=== PATIENT | female | born 1940 | race Caucasian/White ===

== ENCOUNTER 2018-11-29 18:18 | Inpatient (IN) | payer OTHER, MEDICARE ==
[2018-11-29 18:54] VITALS: BMI 24.0
--- NOTE | 2018-11-29 19:50 | PDOC ---
*Physical Exam - Vital Signs Last Vital Signs Temp Pulse Resp BP Pulse Ox 97.6 F 75 20 125/76 95 11/29/18 18:48 11/29/18 18:48 11/29/18 18:48 11/29/18 18:48 11/29/18 18:48 ED Treatment Course - LABORATORY CBC & Chemistry Diagram: 11/29/18 23:00 11/29/18 23:00 Medical Decision Making - Medical Decision Making 11/29/18 19:50 Patient seen by the advanced practice provider under my direct supervision. Ancillary testing reviewed as necessary. I agree with plan as outlined by the advanced practice provider. *DC/Admit/Observation/Transfer Diagnosis at time of Disposition: Fall - Referrals Referrals: Elva Salomon MD [Primary Care Provider] - - Patient Instructions - Post Discharge Activity
--- NOTE | 2018-11-29 20:09 | PDOC ---
History of Present Illness <Lazaro Walton - Last Filed: 11/29/18 23:47> - General History Source: Patient Exam Limitations: No Limitations - History of Present Illness Initial Comments: 11/29/18 20:05 HISTORY OF PRESENT ILLNESS: This 78-year-old woman with past medical history of left humerus fracture 09/19, pneumonia, PE on Eliquis with IVC filter, bleeding gastric ulcer presents emergency department for evaluation of head trauma status post fall. Patient resides in an assisted living facility and on her way to dinner she stopped in her kitchen at to put something down when she tried to stand up from a bending position fell backwards striking her head on the floor. She denies any loss of consciousness and is full recollection of events immediately prior to, during and after the event. Patient required assistance to get off the floor she still has the left humeral fracture. Patient also complains of urinary frequency and dysuria. No recent travel or sick contacts. PAST MEDICAL HISTORY: see HPI SURGICAL HISTORY: Denies ALLERGIES: azithromycin, lactose, gluten, latex, Talwin REVIEW OF SYSTEMS General/Constitutional: Denies fever or chills. Denies weakness, weight change. HEENT: Denies change in vision. Denies ear pain or discharge. Denies sore throat. Cardiovascular: Denies chest pain or shortness of breath. Respiratory: Denies cough, wheezing, or hemoptysis. Gastrointestinal: Denies nausea, vomiting, diarrhea or constipation. Denies rectal bleeding. Genitourinary: see HPI Musculoskeletal: Denies joint or muscle swelling or pain. Denies neck or back pain. Skin and breasts: Denies rash or easy bruising. Neurologic: see HPI Psychiatric: Denies depression or anxiety. Endocrine: Denies increased thirst. Denies abnormal weight change. Hematologic/Lymphatic: Denies anemia, easy bleeding, or history of blood clots. Allergic/Immunologic: Denies hives or skin allergy. Denies latex allergy. PHYSICAL EXAM General Appearance: Well-appearing, appropriately dressed. No apparent distress , no intoxication. HEENT: EOMI, PERRLA, normal voice, TMs normal, pharynx normal. No conjunctival pallor. No photophobia, scleral icterus. Left eye cataract present. MM dry. Neck: Supple. Trachea midline. No tenderness, rigidity, carotid bruit, stridor , lymphadenopathy, or thyromegaly. Respiratory/Chest: Lungs CTAB. No shortness of breath, chest tenderness, respiratory distress, accessory muscle use. No crackles, rales, rhonchi, stridor , wheezing, dullness Cardiovascular: RRR. S1, S2. No JVD, murmur, bradycardia, tachycardia. Vascular Pulses: Dorsalis-Pedis (R): 2+, Dorsalis-Pedis (L): 2+ Gastrointestinal/Abdominal: Normal bowel sounds. Abdomen soft, non-distended. No tenderness or rebound tenderness. No organomegaly, pulsatile mass, guarding, hernia, hepatomegaly, splenomegaly. Lymphatic: No adenopathy, tenderness. Musculoskeletal/Extremities: Normal inspection. FROM of all extremities, normal capillary refill. Pelvis Stable. No CVA tenderness. No tenderness to extremities, pedal edema, swelling, erythema or deformity. No bony tenderness to cervical, thoracic or lumbar spine. Integumentary: Appropriate color, dry, warm. No cyanosis, erythema, jaundice or rash Neurologic: brick or block maker II-XII intact. Fully oriented, alert. Appropriate mood/affect. Motor strength 5/5. No appreciable EOM palsy, facial droop or sensory deficit. <Jameel Lee - Last Filed: 11/30/18 20:04> - General Chief Complaint: Injury Stated Complaint: FALL Time Seen by Provider: 11/29/18 19:48 Past History <Lazaro Walton - Last Filed: 11/29/18 23:47> - Past Medical History Anemia: No Asthma: No Cancer: Yes (lt breast) Cardiac Disorders: Yes CVA: No COPD: No CHF: No Dementia: No Diabetes: No GI Disorders: No Disorders: No HTN: No Hypercholesterolemia: No Liver Disease: No Psychiatric Problems: Yes (Anxiety) Seizures: No Thyroid Disease: No - Surgical History Abdominal Surgery: Yes (bleeding ulcers) Appendectomy: Yes Cardiac Surgery: No Cholecystectomy: No Lung Surgery: No Neurologic Surgery: No Orthopedic Surgery: No - Suicide/Smoking/Psychosocial Hx Smoking Status: No Smoking History: Former smoker Have you smoked in the past 12 months: No Number of Cigarettes Smoked Daily: 20 If you are a former smoker, when did you quit?: 6mos ago Information on smoking cessation initiated: No 'Breaking Loose' booklet given: 06/20/12 Hx Alcohol Use: No Drug/Substance Use Hx: No Substance Use Type: Prescribed Hx Substance Use Treatment: No <Jameel Lee - Last Filed: 11/30/18 20:04> - Past Medical History Allergies/Adverse Reactions: Allergies Allergy/AdvReac Type Severity Reaction Status Date / Time azithromycin Allergy Verified 11/29/18 20:13 gluten [Gluten] Allergy Verified 11/29/18 20:13 lactose [Lactose] Allergy diarrhea Verified 11/29/18 20:13 latex Allergy Verified 11/29/18 20:13 pentazocine lactate Allergy abnormal Verified 11/29/18 20:13 [From Zoë] behavior Home Medications: Ambulatory Orders Acetaminophen [Tylenol] 325 mg PO Q6H PRN 11/29/18 Apixaban [Eliquis] 5 mg PO BID 11/29/18 Clonazepam 0.5 mg PO TID 11/29/18 Docusate Sodium [Colace] 100 mg PO DAILY 11/29/18 Metoprolol Succinate [Toprol Xl] 25 mg PO BID 11/29/18 Mirtazapine [Remeron -] 30 mg PO HS 11/29/18 Multivitamin [Multiple Vitamins] 1 each PO DAILY 11/29/18 Oxycodone HCl/Acetaminophen [Percocet 5-325 mg Tablet] 1 tab PO DAILY PRN Pantoprazole Sodium [Protonix] 40 mg PO DAILY 11/29/18 Potassium Chloride 20 meq PO DAILY 11/29/18 Sucralfate [Carafate -] 1 gm PO BID 11/29/18 Tramadol HCl [Ultram] 50 mg PO BID 11/29/18 Trauma Specific PMHX - Complaint Specific PMHX Arthritis: No <Jameel Lee - Last Filed: 11/30/18 20:04> *Physical Exam - Vital Signs Last Vital Signs Temp Pulse Resp BP Pulse Ox 97.6 F 75 20 125/76 95 11/29/18 18:48 11/29/18 18:48 11/29/18 18:48 11/29/18 18:48 11/29/18 18:48 <Lazaro Walton - Last Filed: 11/29/18 23:47> - Vital Signs Last Vital Signs Temp Pulse Resp BP Pulse Ox 97.6 F 75 20 125/76 95 11/29/18 18:48 11/29/18 18:48 02/27/19 18:48 11/29/18 18:48 11/29/18 18:48 <Jameel Lee - Last Filed: 11/30/18 20:04> Moderate Sedation - Procedure Monitoring Vital Signs: Procedure Monitoring Vital Signs Temperature 97.6 F 11/29/18 18:48 Pulse Rate 75 11/29/18 18:48 Respiratory Rate 20 11/29/18 18:48 Blood Pressure 125/76 11/29/18 18:48 O2 Sat by Pulse Oximetry (%) 95 11/29/18 18:48 <Lazaro Walton - Last Filed: 11/29/18 23:47> - Procedure Monitoring Vital Signs: Procedure Monitoring Vital Signs Temperature 97.6 F 11/29/18 18:48 Pulse Rate 75 11/29/18 18:48 Respiratory Rate 20 11/29/18 18:48 Blood Pressure 125/76 11/29/18 18:48 O2 Sat by Pulse Oximetry (%) 95 11/29/18 18:48 <Jameel Lee - Last Filed: 11/30/18 20:04> ED Treatment Course - LABORATORY CBC & Chemistry Diagram: 11/29/18 23:00 11/29/18 23:00 - ADDITIONAL ORDERS Additional order review: Laboratory Results 11/29/18 11/29/18 23:10 23:00 PT with INR 16.00 H INR 1.35 H Urine Color Ltyellow Urine Appearance Clear Urine pH 5.0 D Ur Specific [place] 1.010 Urine Protein Negative Urine Glucose (UA) Negative Urine Ketones Negative Urine Blood Negative Urine Nitrite Negative Urine Bilirubin Negative Urine Urobilinogen Negative Ur Leukocyte Esterase 1+ H Urine WBC (Auto) 9 Urine RBC (Auto) 1 Ur Epithelial Cells Rare Urine Mucus Rare 11/29/18 23:00 RBC 4.40 MCV 89.9 MCHC 33.3 RDW 14.9 D MPV 7.9 Neutrophils % 53.9 D Lymphocytes % 32.9 D Monocytes % 9.9 Eosinophils % 2.4 D Basophils % 0.9 D <Lazaro Walton - Last Filed: 11/29/18 23:47> - LABORATORY CBC & Chemistry Diagram: 11/29/18 23:00 11/29/18 23:00 <Jameel Lee - Last Filed: 11/30/18 20:04> Medical Decision Making - Medical Decision Making 11/29/18 23:45 Call placed to pt's PCP Dr. Salomon's answering service, case was discussed. <Lazaro Walton - Last Filed: 11/29/18 23:47> - Medical Decision Making 11/29/18 20:11 A/P: 78-year-old woman with head trauma status post fall Differential diagnosis includes but not limited to intracranial hemorrhage, spinal fracture, basilar skull fracture-unlikely, ACS, NED, infection, electrolyte abnormality CBC, CMP, coagulation profile, cardiac profile, CT of the head, CT of the C- spine, chest x-ray, urinalysis, urine culture 11/29/18 23:[address] as read by Dr. Hess: No CT evidence of intracranial injury calvarial fracture. There is no extra axial fluid collection. No discrete infarct is identified with the limitations of CT. In comparison to a prior CT exam of 06/19/12 interval development of mild periventricular white matter chronic muscular vascular ischemic changes is noted. Mildly increased involutional changes are seen with corresponding mild ventricular dilation. No obvious mass lesion is noted on noncontrast imaging. Impression: No CT evidence of acute age cranial pathology. CT of the C-spine as read by Dr. Hess: No fractures identified. EKG is reviewed by me and interpreted by Dr. mendieta-sinus rhythm with rate of 64. Normal intervals present. No ischemic changes noted. I will contact the PMD for observation for repeat CT scan in 12 hours UA with 1+ leuk esterase and 9 wbc's. I'll treat patient for urinary tract infection with ceftriaxone 1 g IV now 11/29/18 23:41 11/29/18 23:57 Case discussed with the patient's primary doctor Dr. Salomon who accepts patient for observation. She requested the patient not be treated for urinary tract infection until micro-returns. I will DC the ceftriaxone and patient is to be admitted. 11/30/18 20:04 <Jameel Lee - Last Filed: 11/30/18 20:04> *DC/Admit/Observation/Transfer - Attestations Scribe Attestion: 11/29/18 23:46 Documentation prepared by Lazaro Walton, acting as director medical for [employer] Jameel Lee. <Lazaro Walton - Last Filed: 11/29/18 23:47> - Discharge Dispostion Decision to Admit order: Yes <Jameel Lee - Last Filed: 11/30/18 20:04> Diagnosis at time of Disposition: Fall Qualifiers: Encounter type: initial encounter Qualified Code(s): W19.XXXA - Unspecified fall, initial encounter UTI (urinary tract infection) Qualifiers: Urinary tract infection type: acute cystitis Hematuria presence: without hematuria Qualified Code(s): N30.00 - Acute cystitis without hematuria - Discharge Dispostion Condition at time of disposition: Fair
[2018-11-29 23:13] LABS: BASO % 0.9 % (0-2.0); EOS % 2.4 % (0-4.5); HEMATOCRIT 39.6 % (32.4-45.2); HEMOGLOBIN 13.2 GM/dL (10.7-15.3); LYMPH % 32.9 % (8-40); MCH 29.9 pg (25.7-33.7); MCHC 33.3 g/dl (32.0-36.0); MEAN CELL VOLUME 89.9 fl (80-96); MEAN PLT VOLUME 7.9 fl (7.5-11.1); MONO % 9.9 % (3.8-10.2); NEUT % 53.9 % (42.8-82.8); PLATELET COUNT 320 K/MM3 (134-434); RDW 14.9 % (11.6-15.6); WHITE BLOOD COUNT 6.3 K/mm3 (4.0-10.0)
[2018-11-29 23:23] LABS: INR 1.35 (0.83-1.09)
[2018-11-29 23:28] LABS: URINE APPEARANCE CLEAR; URINE BILIRUBIN NEGATIVE (<2.0 mg/dL); URINE COLOR LTYELLOW; URINE GLUCOSE (UA) NEGATIVE (NEGATIVE); URINE KETONE NEGATIVE (NEGATIVE); URINE LEUK ESTERASE 1+ (NEGATIVE); URINE NITRITE NEGATIVE (NEGATIVE); URINE PROTEIN NEGATIVE (NEGATIVE); URINE UROBILINOGEN NEGATIVE mg/dL (0.2-1.0)
[2018-11-29 23:32] LABS: EPI CELLS RARE /HPF (FEW); URINE MUCUS RARE
[2018-11-29] MEDS ORDERED: CEFTRIAXONE 1,000 MG in DEXTROSE 5%-WATER - 50 ML IVPB ONE (23:39)
[2018-11-29 23:56] LABS: COCAINE, UR NEGATIVE ng/ml (CUTOFF=300); METHADONE, UR NEGATIVE ng/ml (CUTOFF=300); OPIATES, URI NEGATIVE ng/ml (CUTOFF=300); PHENCYCLIDINE,URINE NEGATIVE ng/ml (CUTOFF=25); URINE AMPHETAMINES NEGATIVE ng/ml (CUTOFF=500); URINE BARBITURATES NEGATIVE ng/ml (CUTOFF=200); URINE BENZODIAZEPINES NEGATIVE ng/ml (CUTOFF=200)
[2018-11-29] MEDS ORDERED: CEFTRIAXONE 1 GM/50 ML BAG ONE (23:59)
[2018-11-30 00:07] LABS: ALBUMIN 3.3 g/dl (3.4-5.0); ALK PHOS 70 U/L (45-117); ANION GAP 3 MMOL/L (8-16); BILIRUBIN,TOTAL 0.2 mg/dL (0.2-1); BLOOD UREA NITROGEN 6 mg/dL (7-18); CALCIUM 8.6 mg/dL (8.5-10.1); CHLORIDE 108 mmol/L (98-107); CO2 29 mmol/L (21-32); CREATININE 0.7 mg/dL (0.55-1.3); GLUCOSE,RANDOM 89 mg/dL (74-106); POTASSIUM 4.6 mmol/L (3.5-5.1); SGOT/AST 16 U/L (15-37); SGPT/ALT 16 U/L (13-61); SODIUM 140 mmol/L (136-145); TOT PROT 6.2 g/dl (6.4-8.2)
[2018-11-30] MEDS ORDERED: clonazePAM 0.5 MG TABLET PO ONE (01:47)
[2018-11-30] MEDS ORDERED: clonazePAM 0.5 MG TABLET ONE (02:15)
[2018-11-30] MEDS: clonazePAM 0.5 MG TABLET PO PRN ×3 (08:37→20:52)
[2018-11-30] MEDS: DOCUSATE SODIUM 100 MG CAPSULE (FP) PO SCH (09:20)
[2018-11-30] MEDS: APIXABAN 5 MG TABLET PO SCH ×3 (13:45→23:07)
[2018-11-30] MEDS: oxyCODONE HCL 5 MG TABLET PO PRN ×2 (13:45→20:53)
[2018-11-30] MEDS: ACETAMINOPHEN 325 MG TABLET (FP) PO PRN (13:47)
--- NOTE | 2018-11-30 16:56 | EKG ---
Test Reason : Blood Pressure : / mmHG Vent. Rate : 064 BPM Atrial Rate : 064 BPM P-R Int : 146 ms QRS Dur : 080 ms QT Int : 410 ms P-R-T Axes : 065 044 059 degrees QTc Int : 422 ms NORMAL SINUS RHYTHM LOW VOLTAGE QRS CANNOT RULE OUT ANTERIOR INFARCT (CITED ON OR BEFORE 21-JUN-2012) ABNORMAL ECG WHEN COMPARED WITH ECG OF 29-JUN-2012 17:35, NO SIGNIFICANT CHANGE WAS FOUND Confirmed by MAURICE HUYNH MD ([id number]) on 11/30/2018 4:56:00 PM Referred By: Confirmed By:MAURICE HUYNH MD
[2018-11-30] MEDS ORDERED: oxyCODONE HCL 5 MG TABLET PO PRN (22:20)
--- NOTE | 2018-11-30 22:28 | HP ---
Admitting History and Physical - Admission Chief Complaint: Fall at Assisted living facility and head trauma History of Present Illness: 78 yo female with PMH of recent fracture of the left humerus s/p discharge from [facility] and admitted to [facility]. Yesterday while she was straightening her body, after bending forward,the patient lost her balance. She fell backwards and hit her head. The patient did not lose her consciousness. Her PMH is complex including,multiple PE's and falls followed by fractures. Although she has an IVC filter she is on Eliquis 5 mg bid. It is not clear when she had her last episode of pulmonary embolism, or DVT and she is not able to recall. She has h/o left breasts cancer, s/p partial mastectomy. 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) - Past Surgical History Additional Past Surgical History: right hip replacement ivc filter - Smoking History Smoking history: Former smoker Have you smoked in the past 12 months: No Aproximately how many cigarettes per day: 20 If you are a former smoker, when did you quit?: 6mos ago - Alcohol/Substance Use Hx Alcohol Use: No - Social History Usual Living Arrangement: Yes: Alone, Assisted Living History of Recent Travel: No Home Medications - Allergies Allergies/Adverse Reactions: Allergies Allergy/AdvReac Type Severity Reaction Status Date / Time azithromycin Allergy Verified 11/29/18 20:13 latex Allergy Verified 11/29/18 20:13 pentazocine lactate Allergy abnormal Verified 11/29/18 20:13 [From Zoë] behavior - Home Medications Home Medications: Ambulatory Orders Apixaban [Eliquis] 5 mg PO BID 11/29/18 Clonazepam 0.5 mg PO TID 11/29/18 Docusate Sodium [Colace] 100 mg PO DAILY 11/29/18 Mirtazapine [Remeron -] 30 mg PO HS 11/29/18 Multivitamin [Multiple Vitamins] 1 each PO DAILY 11/29/18 Pantoprazole Sodium [Protonix] 40 mg PO DAILY 11/29/18 Acetaminophen [Tylenol .Regular Strength -] 650 mg PO Q6H PRN tablet 12/04/18 Apixaban [Eliquis -] 5 mg PO BID tablet 12/04/18 Docusate Sodium [Colace -] 100 mg PO DAILY capsule 12/04/18 Lidocaine 5% Patch [Lidoderm -] 2 patch TP DAILY patch 12/04/18 Lidocaine Patch Removal [Lidoderm Patch Removal] 2 each MC DAILY@2200 each 01/19 Mirtazapine [Remeron -] 30 mg PO HS tablet 12/04/18 Pantoprazole Sodium [Protonix -] 40 mg PO DAILY tablet.ec 12/04/18 clonazePAM [Klonopin -] 0.5 mg PO TID PRN #30 tablet MDD 3 12/04/18 Review of Systems - Review of Systems Constitutional: reports: Weakness Eyes: reports: Other (decreased vision in th left eye) HENT: reports: No Symptoms Neck: reports: No Symptoms Cardiovascular: reports: Shortness of Breath (with ambulation for short distances) Respiratory: reports: Exercise Intolerance. denies: Orthopnea Gastrointestinal: reports: Bloating, Constipation Genitourinary: reports: Burning Psychiatric: reports: Anxiety, Depression, Panic Physical Examination Vital Signs: Vital Signs Temperature 97.7 F 11/30/18 20:57 Pulse Rate 79 11/30/18 20:57 Respiratory Rate 18 11/30/18 20:57 Blood Pressure 100/70 11/30/18 20:57 O2 Sat by Pulse Oximetry (%) 96 11/30/18 09:00 Constitutional: Yes: No Distress, Calm. No: Severe Distress Eyes: Yes: Conjunctiva Clear, EOM Intact HENT: Yes: Atraumatic, Normocephalic Neck: Yes: Decreased ROM Cardiovascular: Yes: Regular Rate and Rhythm, S1, S2 Respiratory: Yes: Regular, CTA Bilaterally Gastrointestinal: Yes: Normal Bowel Sounds, Soft, Abdomen, Obese. No: Ascites ...Rectal Exam: Yes: Deferred Breast(s): Yes: WNL Musculoskeletal: Yes: Joint Stiffness (in the left shoulder,), Muscle Weakness ( in the lower extremities) Extremities: No: Calf Tenderness Edema: Yes Edema: RLE: 2+ Peripheral Pulses WNL: Yes Neurological: Yes: Alert, Oriented Psychiatric: Yes: Alert, Oriented, Other (anxious) Labs: CBC, BMP 11/29/18 23:00 11/29/18 23:00 Imaging - Results Chest X-ray: Other (no pleural effusions, no infiltrates) Problem List - Problems (1) Head trauma Assessment/Plan: negative CT scan of the brain no neurological changes continue Eliquis for now reasses the need for anticoagulation, consulting our Oncology service Code(s): S09.90XA - UNSPECIFIED INJURY OF HEAD, INITIAL ENCOUNTER (2) Fall Assessment/Plan: pain in the C spine and T spine area, add Lidoderm patch for pain management during the day Code(s): W19.XXXA - UNSPECIFIED FALL, INITIAL ENCOUNTER Qualifiers: Encounter type: initial encounter Qualified Code(s): W19.XXXA - Unspecified fall, initial encounter (3) Gait disturbance Assessment/Plan: continue PT, the patient is weak and needs additional intensive OT and PT , she has limited use of her left upper extremity and this makes her more prone to falls, used to use a bed side rail at home in order to get in and out of her bed she is not a candidate to discharge to [facility] at this time Code(s): R26.9 - UNSPECIFIED ABNORMALITIES OF GAIT AND MOBILITY (4) Fracture of humerus, left, closed Assessment/Plan: needs intensive OT, poor usage and limited usage of the left upper extremity is present Code(s): S42.302A - UNSP FRACTURE OF SHAFT OF HUMERUS, LEFT ARM, INIT (5) Healed or old pulmonary embolism Assessment/Plan: medical records to be obtained from [facility] called Dr. Alvarenga' office, the doctor was not in and will be back after the weekend Code(s): Z86.711 - PERSONAL HISTORY OF PULMONARY EMBOLISM Assessment/Plan 78 yo female s/p fall and head trauma on anticoagulation, with PMH of multiple falls the most recent complicated by her left humerus fracture. The patient needs help with getting in and out of the bed, needs the help of a person with long distance ambulation can not ambulate for long distances without being dyspneic and has unsteady gait.She is a candidate for physical therapy and I recommend discharge to SNF
[2018-11-30] MEDS: traMADol HCL 50 MG TABLET PO PRN (23:07)
[2018-11-30] MEDS: MIRTAZAPINE 15 MG TABLET (FP) PO SCH (23:07)
[2018-12-01] MEDS: DOCUSATE SODIUM 100 MG CAPSULE (FP) PO SCH (09:32)
[2018-12-01] MEDS: clonazePAM 0.5 MG TABLET PO PRN ×2 (09:32→16:11)
[2018-12-01] MEDS: APIXABAN 5 MG TABLET PO SCH ×2 (09:32→21:35)
[2018-12-01] MEDS: ACETAMINOPHEN 325 MG TABLET (FP) PO PRN (09:40)
--- NOTE | 2018-12-01 15:41 | PN ---
Progress Note, Physician Chief Complaint: complaining of post fall pain in the cervical area and mid thoracic area has difficulty in getting in and out of the bed, and needs assistance of a person - Current Medication List Current Medications: Active Medications Acetaminophen (Tylenol -) 650 mg PO Q6H PRN PRN Reason: PAIN LEVEL 4 - 6 Last Admin: 12/01/18 09:40 Dose: 650 mg Apixaban (Eliquis -) 5 mg PO BID [facility] Last Admin: 12/01/18 09:32 Dose: 5 mg Clonazepam (Klonopin -) 0.5 mg PO TID PRN PRN Reason: ANXIETY Last Admin: 12/01/18 09:32 Dose: 0.5 mg Docusate Sodium (Colace -) 100 mg PO DAILY [facility] Last Admin: 12/01/18 09:32 Dose: 100 mg Mirtazapine (Remeron -) 30 mg PO HS [facility] Last Admin: 11/30/18 23:07 Dose: 30 mg Oxycodone HCl (Roxicodone -) 5 mg PO Q8H PRN PRN Reason: PAIN LEVEL 6-10 Tramadol HCl (Ultram -) 50 mg PO HS PRN PRN Reason: PAIN LEVEL 6-10 Last Admin: 11/30/18 23:07 Dose: 50 mg - Objective Vital Signs: Vital Signs Temperature 98 F 12/01/18 15:00 Pulse Rate 98 H 12/01/18 15:00 Respiratory Rate 18 12/01/18 15:00 Blood Pressure 118/76 12/01/18 15:00 O2 Sat by Pulse Oximetry (%) 98 12/01/18 09:00 Constitutional: Yes: No Distress, Calm Eyes: Yes: Conjunctiva Clear, EOM Intact HENT: Yes: Atraumatic, Normocephalic Neck: Yes: Supple, Trachea Midline Cardiovascular: Yes: Regular Rate and Rhythm, S1, S2 Respiratory: Yes: Regular, CTA Bilaterally Gastrointestinal: Yes: Normal Bowel Sounds, Soft, Abdomen, Obese, Hypoactive Bowel Sounds. No: Hepatomegaly, Splenomegaly ...Rectal Exam: Yes: Deferred Musculoskeletal: Yes: Back Pain Extremities: No: Calf Tenderness Edema: Yes Edema: RLE: 1+ Peripheral Pulses WNL: Yes Neurological: Yes: Alert, Oriented Labs: CBC, BMP 11/29/18 23:00 11/29/18 23:00 INR, PTT INR 1.35 (0.83-1.09) H 11/29/18 23:00 Problem List - Problems (1) Head trauma Assessment/Plan: no neurological changes continue monitoring Code(s): S09.90XA - UNSPECIFIED INJURY OF HEAD, INITIAL ENCOUNTER (2) Fall Assessment/Plan: pain in [place] C spine and t spine area, add Lidoderm patch for pain management during the day Code(s): W19.XXXA - UNSPECIFIED FALL, INITIAL ENCOUNTER Qualifiers: Encounter type: initial encounter Qualified Code(s): W19.XXXA - Unspecified fall, initial encounter (3) Gait disturbance Assessment/Plan: continue PT, the patient is weak and needs additional intensive OT and PT , she has limited use of her left upper extremity and thsi makes her more prone to falls, she is not a candidate to discharge to [facility] at this time Code(s): R26.9 - UNSPECIFIED ABNORMALITIES OF GAIT AND MOBILITY (4) Fracture of humerus, left, closed Assessment/Plan: needs intensive OT, poor usage and limited usage of the left upper extremity is present Code(s): S42.302A - UNSP FRACTURE OF SHAFT OF HUMERUS, LEFT ARM, INIT (5) Healed or old pulmonary embolism Assessment/Plan: medical records obtained form [facility], the patient had an active DVT in October this year, she is still on Eliquis 5 mg bid the patient has an IVC filter and due to the frequent falls, and head injury I iwll ask the opinion of Hematology regarding anticoagulation Code(s): Z86.711 - PERSONAL HISTORY OF PULMONARY EMBOLISM (6) History of pulmonary embolism Assessment/Plan: on Eliquis 5 mg bid, unclear about continuing this medication, due to frequent fall status Code(s): Z86.711 - PERSONAL HISTORY OF PULMONARY EMBOLISM Assessment/Plan 78 yo female s/p fall and head trauma on anticoagulation, with PMH of multiple falls the most recent complicated by her left humerus fracture. The patient needs help with getting in and out of the bed, needs the help of a person with long distance ambulation can not ambulate for long distances without being dyspneic and has unsteady gait.She is a candidate for physical therapy and I recommend discharge to SNF
[2018-12-01] MEDS: MIRTAZAPINE 15 MG TABLET (FP) PO SCH (21:35)
[2018-12-01] MEDS: traMADol HCL 50 MG TABLET PO PRN (21:36)
[2018-12-02] MEDS: clonazePAM 0.5 MG TABLET PO PRN ×2 (08:50→16:40)
[2018-12-02] MEDS: oxyCODONE HCL 5 MG TABLET PO PRN ×2 (10:43→18:50)
[2018-12-02] MEDS: APIXABAN 5 MG TABLET PO SCH ×2 (10:43→21:16)
[2018-12-02] MEDS: DOCUSATE SODIUM 100 MG CAPSULE (FP) PO SCH (10:43)
[2018-12-02] MEDS: LIDOCAINE 5% TOPICAL PATCH TP SCH (10:44)
[2018-12-02] MEDS: ACETAMINOPHEN 325 MG TABLET (FP) PO PRN (12:57)
--- NOTE | 2018-12-02 19:07 | PN ---
Progress Note, Physician Chief Complaint: the patient had a bowel movement last night, complains of being hungry, has pain in the left upper shoulder, refused physical therapy today History of Present Illness: fall and head trauma - Current Medication List Current Medications: Active Medications Acetaminophen (Tylenol -) 650 mg PO Q6H PRN PRN Reason: PAIN LEVEL 4 - 6 Last Admin: 12/02/18 12:57 Dose: 650 mg Apixaban (Eliquis -) 5 mg PO BID [facility] [place] Last Admin: 12/02/18 10:43 Dose: 5 mg Clonazepam (Klonopin -) 0.5 mg PO TID PRN PRN Reason: ANXIETY Last Admin: 12/02/18 16:40 Dose: 0.5 mg Docusate Sodium (Colace -) 100 mg PO DAILY [facility] Last Admin: 12/02/18 10:43 Dose: 100 mg Lidocaine (Lidoderm Patch -) 2 patch TP DAILY [facility] Last Admin: 12/02/18 10:44 Dose: 2 patch Mirtazapine (Remeron -) 30 mg PO HS [facility] [place] Last Admin: 12/01/18 21:35 Dose: 30 mg Miscellaneous (Lidoderm Patch Removal) 2 each MC DAILY@2200 [facility] Oxycodone HCl (Roxicodone -) 5 mg PO TID@0800,1200,1700 PRN PRN Reason: PAIN LEVEL 6-10 Tramadol HCl (Ultram -) 50 mg PO HS PRN PRN Reason: PAIN LEVEL 6-10 Last Admin: 12/01/18 21:36 Dose: 50 mg - Objective Vital Signs: Vital Signs Temperature 98.1 F 12/02/18 18:00 Pulse Rate 90 12/02/18 18:00 Respiratory Rate 18 12/02/18 18:00 Blood Pressure 107/74 12/02/18 18:00 O2 Sat by Pulse Oximetry (%) 98 12/02/18 10:45 Constitutional: Yes: No Distress, Calm Eyes: Yes: Conjunctiva Clear, EOM Intact HENT: Yes: Atraumatic, Normocephalic Neck: Yes: Supple, Trachea Midline Cardiovascular: Yes: Regular Rate and Rhythm, S1, S2 Respiratory: Yes: Regular, CTA Bilaterally Gastrointestinal: Yes: Normal Bowel Sounds, Soft, Abdomen, Obese Labs: CBC, BMP 11/29/18 23:00 11/29/18 23:00 INR, PTT INR 1.35 (0.83-1.09) H 11/29/18 23:00 Problem List - Problems (1) Head trauma Assessment/Plan: negative CT scan of the brain no neurological changes continue Eliquis for now reasses the need for anticoagulation, consulting our Oncology service Code(s): S09.90XA - UNSPECIFIED INJURY OF HEAD, INITIAL ENCOUNTER (2) Fall Assessment/Plan: pain in the C spine and T spine area, add Lidoderm patch for pain management during the day Code(s): W19.XXXA - UNSPECIFIED FALL, INITIAL ENCOUNTER Qualifiers: Encounter type: initial encounter Qualified Code(s): W19.XXXA - Unspecified fall, initial encounter (3) Gait disturbance Assessment/Plan: continue PT, the patient is weak and needs additional intensive OT and PT , she has limited use of her left upper extremity and this makes her more prone to falls, she is not a candidate to discharge to [facility] at this time Code(s): R26.9 - UNSPECIFIED ABNORMALITIES OF GAIT AND MOBILITY (4) Fracture of humerus, left, closed Assessment/Plan: needs intensive OT, poor usage and limited usage of the left upper extremity is present Code(s): S42.302A - UNSP FRACTURE OF SHAFT OF HUMERUS, LEFT ARM, INIT (5) Healed or old pulmonary embolism Assessment/Plan: medical records obtained from [facility]:the patient had an active DVT in October this year, she is still on Eliquis 5 mg bid the patient has an IVC filter and due to the frequent falls, and head injury I will ask for the opinion of our Hematology service regarding anticoagulation Code(s): Z86.711 - PERSONAL HISTORY OF PULMONARY EMBOLISM
[2018-12-02] MEDS: MIRTAZAPINE 15 MG TABLET (FP) PO SCH (21:16)
[2018-12-02] MEDS: traMADol HCL 50 MG TABLET PO PRN (21:18)
[2018-12-03] MEDS: LIDOCAINE PATCH REMOVAL MC SCH (07:29)
[2018-12-03] MEDS: oxyCODONE HCL 5 MG TABLET PO PRN ×2 (08:43→13:30)
[2018-12-03 09:08] LABS: ALBUMIN 2.8 g/dl (3.4-5.0); ALK PHOS 66 U/L (45-117); ANION GAP 6 MMOL/L (8-16); BILIRUBIN,TOTAL 0.2 mg/dL (0.2-1); BLOOD UREA NITROGEN 7 mg/dL (7-18); CALCIUM 8.3 mg/dL (8.5-10.1); CHLORIDE 108 mmol/L (98-107); CO2 29 mmol/L (21-32); CREATININE 0.8 mg/dL (0.55-1.3); GLUCOSE,RANDOM 90 mg/dL (74-106); SGOT/AST 14 U/L (15-37); SGPT/ALT 14 U/L (13-61); SODIUM 142 mmol/L (136-145)
[2018-12-03] MEDS: LIDOCAINE 5% TOPICAL PATCH TP SCH (09:57)
[2018-12-03] MEDS: APIXABAN 5 MG TABLET PO SCH ×2 (09:58→21:16)
[2018-12-03] MEDS: DOCUSATE SODIUM 100 MG CAPSULE (FP) PO SCH (09:58)
[2018-12-03] MEDS: clonazePAM 0.5 MG TABLET PO PRN ×2 (10:08→16:22)
--- NOTE | 2018-12-03 10:49 | PN ---
Progress Note, Physician Chief Complaint: The patient is comfortable in her bed, had left shoulder pain earlier. Pain is located in the left cervical and suprascapular area. The patient did not have PT today and refused PT yesterday. Medical records form [facility] Oct 2018 are available now and attached to the chart. According to the records from 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 Her IVC filter was patent at that time and free of clots. Eliquis 5 mg bid continuation was recommended at that time History of Present Illness: fall and head trauma - Current Medication List Current Medications: Active Medications Acetaminophen (Tylenol -) 650 mg PO Q6H PRN PRN Reason: PAIN LEVEL 4 - 6 Last Admin: 12/02/18 12:57 Dose: 650 mg Apixaban (Eliquis -) 5 mg PO BID [facility] Last Admin: 12/03/18 09:58 Dose: 5 mg Clonazepam (Klonopin -) 0.5 mg PO TID PRN PRN Reason: ANXIETY Last Admin: 12/03/18 10:08 Dose: 0.5 mg Docusate Sodium (Colace -) 100 mg PO DAILY [facility] Last Admin: 12/03/18 09:58 Dose: 100 mg Lidocaine (Lidoderm Patch -) 2 patch TP DAILY [facility] Last Admin: 12/03/18 09:57 Dose: 2 patch Mirtazapine (Remeron -) 30 mg PO HS [facility] Last Admin: 12/02/18 21:16 Dose: 30 mg Miscellaneous (Lidoderm Patch Removal) 2 each MC DAILY@2200 [facility] Last Admin: 12/03/18 07:29 Dose: Not Given Oxycodone HCl (Roxicodone -) 5 mg PO TID@0800,1200,1700 PRN PRN Reason: PAIN LEVEL 6-10 Last Admin: 12/03/18 08:43 Dose: 5 mg Tramadol HCl (Ultram -) 50 mg PO HS PRN PRN Reason: PAIN LEVEL 6-10 Last Admin: 12/02/18 21:18 Dose: 50 mg - Objective Vital Signs: Vital Signs Temperature 97.7 F 12/03/18 09:14 Pulse Rate 84 12/03/18 09:14 Respiratory Rate 18 12/03/18 09:14 Blood Pressure 121/72 12/03/18 09:14 O2 Sat by Pulse Oximetry (%) 98 12/02/18 21:00 Constitutional: Yes: No Distress, Calm Eyes: Yes: Conjunctiva Clear, EOM Intact HENT: Yes: Atraumatic, Normocephalic Neck: Yes: Supple, Trachea Midline Cardiovascular: Yes: Regular Rate and Rhythm, S1, S2 Respiratory: Yes: Regular, CTA Bilaterally, Other (right anterior wall chest adrian cath, no sign of inflammation) Gastrointestinal: Yes: Normal Bowel Sounds, Soft, Abdomen, Obese, Tenderness ( in the epigastric area). No: Palpable Mass ...Rectal Exam: Yes: Deferred Extremities: Yes: Other (edema of the left lower extremity). No: Calf Tenderness Peripheral Pulses WNL: Yes Neurological: Yes: Alert, Oriented Psychiatric: Yes: Alert, Oriented Labs: CBC, BMP 11/29/18 23:00 12/03/18 06:10 INR, PTT INR 1.35 (0.83-1.09) H 11/29/18 23:00 - ....Imaging Cat Scan: Other (Ct scan of [facility] brain showed no intracranial hemorrhage or acute process) Problem List - Problems (1) Head trauma Assessment/Plan: negative CT scan of the brain no neurological changes continue Eliquis for now reasses the need for anticoagulation with the patient's Oncologist, Dr. Perla Alvarenga Code(s): S09.90XA - UNSPECIFIED INJURY OF HEAD, INITIAL ENCOUNTER (2) Gait disturbance Assessment/Plan: continue PT, the patient is weak and needs additional intensive OT and PT , she has limited use of her left upper extremity and this makes her more prone to falls, she is not a candidate to discharge to [facility] at this time Code(s): R26.9 - UNSPECIFIED ABNORMALITIES OF GAIT AND MOBILITY (3) History of pulmonary embolism Assessment/Plan: on Eliquis 5 mg bid, unclear about continuing this medications since she is a high risk for fall we do not have sufficient clinical information at this time to make a pertinent decision regarding anticoagulation this will be deferred to the patient's treating Oncologist Code(s): Z86.711 - PERSONAL HISTORY OF PULMONARY EMBOLISM (4) Fall on same level, unspecified, subsequent encounter Assessment/Plan: no fractures restart PT and OT Code(s): W18.30XD - FALL ON SAME LEVEL, UNSPECIFIED, SUBSEQUENT ENCOUNTER (5) Other fracture of shaft of left humerus, subsequent encounter for fracture with delayed healing Assessment/Plan: requires OT, patient using at home bedside rails due to her limited mobility Code(s): S42.392G - OTH FRACTURE OF SHAFT OF L HUMERUS, SUBS FOR FX W DELAY HEAL (6) Breast cancer, left breast Assessment/Plan: in remission Code(s): C50.912 - MALIGNANT NEOPLASM OF UNSPECIFIED SITE OF LEFT FEMALE BREAST
[2018-12-03] MEDS: traMADol HCL 50 MG TABLET PO PRN (21:16)
[2018-12-03] MEDS: MIRTAZAPINE 15 MG TABLET (FP) PO SCH (21:16)
--- NOTE | 2018-12-03 23:45 | CONSULT ---
Consult Consult Specialty:: Hematology Referred by:: Medicine Reason for Consultation:: Anticoagulation management - History of Present Illness Chief Complaint: Patient admitted following mechanicall fall - with head trauma. History of Present Illness: As above. Is currently on anticoagulation for history of multiple thromboembolic events - including reported possible PE within last 3 months. Determination required whether risk of anticoagulation (being a fall risk) justifies benefit in terms of prevention of further thromboembolic events. has IVC filter. Patient cannot recall details but has had at least 2 events in the past - one following hip replacement surgery, and a more recent event at [facility] , possibly associated with pneumonia. Previously on warfarin, currently on Eliquis Denies hemorrhagic complication while on AC, but does indicate that she has been worked up for a gastric ulcer. Remote history of breast cancer. Known to Dr Perla Alvarenga (oncology) and to Dr Tariq Curran (hematology). No family history of thrombosis. 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) - Alcohol/Substance Use Hx Alcohol Use: No - Smoking History Smoking history: Former smoker Have you smoked in the past 12 months: No Aproximately how many cigarettes per day: 20 If you are a former smoker, when did you quit?: 6mos ago - Social History History of Recent Travel: No Home Medications - Allergies Allergies/Adverse Reactions: Allergies Allergy/AdvReac Type Severity Reaction Status Date / Time azithromycin Allergy Verified 11/29/18 20:13 latex Allergy Verified 11/29/18 20:13 pentazocine lactate Allergy abnormal Verified 11/29/18 20:13 [From Zoë] behavior - Home Medications Home Medications: Ambulatory Orders Apixaban [Eliquis] 5 mg PO BID 11/29/18 Clonazepam 0.5 mg PO TID 11/29/18 Docusate Sodium [Colace] 100 mg PO DAILY 11/29/18 Mirtazapine [Remeron -] 30 mg PO HS 11/29/18 Multivitamin [Multiple Vitamins] 1 each PO DAILY 11/29/18 Pantoprazole Sodium [Protonix] 40 mg PO DAILY 11/29/18 Acetaminophen [Tylenol .Regular Strength -] 650 mg PO Q6H PRN tablet 12/04/18 Apixaban [Eliquis -] 5 mg PO BID tablet 12/04/18 Docusate Sodium [Colace -] 100 mg PO DAILY capsule 12/04/18 Lidocaine 5% Patch [Lidoderm -] 2 patch TP DAILY patch 12/04/18 Lidocaine Patch Removal [Lidoderm Patch Removal] 2 each MC DAILY@2200 each 01/19 Mirtazapine [Remeron -] 30 mg PO HS tablet 12/04/18 Pantoprazole Sodium [Protonix -] 40 mg PO DAILY tablet.ec 12/04/18 clonazePAM [Klonopin -] 0.5 mg PO TID PRN #30 tablet MDD 3 12/04/18 Physical Exam Vital Signs: Vital Signs Temperature 98.2 F 12/03/18 20:16 Pulse Rate 104 H 12/03/18 20:16 Respiratory Rate 20 12/03/18 21:00 Blood Pressure 103/55 L 12/03/18 20:16 O2 Sat by Pulse Oximetry (%) 98 12/03/18 21:00 Constitutional: Yes: Well Nourished, No Distress Eyes: Yes: Conjunctiva Clear HENT: Yes: Atraumatic Neck: Yes: Supple, Trachea Midline. No: Lymphadenopathy Cardiovascular: Yes: Regular Rate and Rhythm, S1. No: Gallop, Murmur Respiratory: Yes: Regular, CTA Bilaterally Gastrointestinal: Yes: Normal Bowel Sounds, Soft. No: Hepatomegaly, Palpable Mass, Splenomegaly, Tenderness Edema: No Peripheral Pulses WNL: Yes Integumentary: No: Petechiae Neurological: Yes: Alert, Oriented. No: Confusion, Unsteady Gait, Weakness ...Motor Strength: WNL Psychiatric: Yes: Alert, Oriented Labs: CBC, BMP 11/29/18 23:00 12/03/18 06:10 Assessment/Plan History of multiple venous thromboembolic events, currently on AC (DOAC), recommended by an outside skate boarder, presents following a fall (negative CT). Certainly the risks and benefits of extended anticoagulation need to be carefully weighed. This determination will depend on a detailed history of her prior events, noting their severity, and the extent to which they were provoked. This determination is best left to the skate boarder who initially assessed her (Dr Curran), and who is presumably more familiar with the circumstances surrounding her prior events. In the interim, noting that it may still be in the 3 month period following her last event, during which anticoagulation is strongly indicated, she should continue with the Eliquis, assuming no absolute contraindications present (eg active bleeding)..
--- NOTE | 2018-12-04 09:51 | DS ---
Physical Examination Vital Signs: Vital Signs Temperature 98.4 F 12/04/18 08:02 Pulse Rate 98 H 12/04/18 08:02 Respiratory Rate 20 12/04/18 08:02 Blood Pressure 115/56 L 12/04/18 08:02 O2 Sat by Pulse Oximetry (%) 98 12/03/18 21:00 Constitutional: Yes: No Distress, Calm Eyes: Yes: Conjunctiva Clear, EOM Intact HENT: Yes: Atraumatic, Normocephalic Neck: Yes: Supple, Trachea Midline Cardiovascular: Yes: Regular Rate and Rhythm, S1, S2 Respiratory: Yes: Regular, CTA Bilaterally. No: Cough, SOB, Tachypnea, Wheezes Gastrointestinal: Yes: Normal Bowel Sounds, Soft, Abdomen, Obese Musculoskeletal: Yes: Other (right laterothoracic ISAIAH CATH present) Extremities: Yes: Other (edema of the right lower extremity). No: Calf Tenderness Peripheral Pulses WNL: Yes Integumentary: Yes: WNL Psychiatric: Yes: Alert, Oriented Labs: CBC, BMP 11/29/18 23:00 12/03/18 06:10 Discharge Summary Current Active Problems Breast cancer, left breast (Acute) Fall on same level, unspecified, subsequent encounter (Acute) Gait disturbance (Acute) Head trauma (Acute) History of pulmonary embolism (Acute) Other fracture of shaft of left humerus, subsequent encounter for fracture with delayed healing (Acute) UTI (urinary tract infection) (Acute) Hospital Course: 78 yo female admitted after a fall and head injury in the [place]. The patient has history of frequent falls and fractures secondary to fall. She recently fractured her left humerus and developed rhabdomiolysis after a fall. She is on chronic anticoagulation with Eliquis high dose. Her PMH is significant for left breast cancer, repeated PE, DVT and IVC filter placement, and chronic opioid and psychotropic medications. She saw Dr. Perla Alvarenga, Oncology, in October 2018, during her last admission at [facility] and she is supposed to follow up with her to discuss AC and removal of the right hemithorax ISAIAH Cath. During this past weekend I tried unsuccessfully to contact Dr. Alvarenga regarding the chronic AC and the high risk for falls and head injury. The patient needs intensive PT and OT. As per my observation and interaction with her she is unable to transfer independent from bed and into bed , and she can not walk for long distances without becoming dyspneic. A follow up with Dr. Alvarenga should be scheduled. Condition: Fair - Instructions Referrals: Elva Salomon MD [Staff Physician] - Disposition: HALFWAY FACILITY - Home Medications Comprehensive Discharge Medication List: Ambulatory Orders Apixaban [Eliquis] 5 mg PO BID 11/29/18 Clonazepam 0.5 mg PO TID 11/29/18 Docusate Sodium [Colace] 100 mg PO DAILY 11/29/18 Mirtazapine [Remeron -] 30 mg PO HS 11/29/18 Multivitamin [Multiple Vitamins] 1 each PO DAILY 11/29/18 Pantoprazole Sodium [Protonix] 40 mg PO DAILY 11/29/18 Acetaminophen [Tylenol .Regular Strength -] 650 mg PO Q6H PRN tablet 12/04/18 Apixaban [Eliquis -] 5 mg PO BID tablet 12/04/18 Docusate Sodium [Colace -] 100 mg PO DAILY capsule 12/04/18 Lidocaine 5% Patch [Lidoderm -] 2 patch TP DAILY patch 12/04/18 Lidocaine Patch Removal [Lidoderm Patch Removal] 2 each MC DAILY@2200 each 01/19 Mirtazapine [Remeron -] 30 mg PO HS tablet 12/04/18 Pantoprazole Sodium [Protonix -] 40 mg PO DAILY tablet.ec 12/04/18 clonazePAM [Klonopin -] 0.5 mg PO TID PRN #30 tablet MDD 3 12/04/18
[2018-12-04] MEDS: DOCUSATE SODIUM 100 MG CAPSULE (FP) PO SCH (10:23)
[2018-12-04] MEDS: PANTOPRAZOLE 40 MG TABLET (FP) PO SCH (10:23)
[2018-12-04] MEDS: APIXABAN 5 MG TABLET PO SCH ×2 (10:23→21:22)
[2018-12-04] MEDS: LIDOCAINE 5% TOPICAL PATCH TP SCH (10:23)
[2018-12-04] MEDS: clonazePAM 0.5 MG TABLET PO PRN ×2 (10:23→19:49)
[2018-12-04] MEDS: oxyCODONE HCL 5 MG TABLET PO PRN ×2 (10:57→17:05)
--- NOTE | 2018-12-04 20:33 | PN ---
Progress Note, Physician Chief Complaint: left shoulder pain History of Present Illness: 78 yo female admitted for head trauma post fall in the [place].She is complaining of left humerus pain. Since admission the patient had [address] scans of the head which were negative and a CT scan of the C spine which was also negative for fractures or hernias. The patient was scheduled for discharge to rehabilitation today but then she refused to go stating that she was never given a 24 hours written notice. The patient asked to be discharged to [facility] instead, afterwards she changed her mind again. - Current Medication List Current Medications: Active Medications Acetaminophen (Tylenol -) 650 mg PO Q6H PRN PRN Reason: PAIN LEVEL 4 - 6 Last Admin: 12/02/18 12:57 Dose: 650 mg Apixaban (Eliquis -) 5 mg PO BID [facility] Last Admin: 12/04/18 10:23 Dose: 5 mg Clonazepam (Klonopin -) 0.5 mg PO TID PRN PRN Reason: ANXIETY Last Admin: 12/04/18 19:49 Dose: 0.5 mg Docusate Sodium (Colace -) 100 mg PO DAILY [facility] Last Admin: 12/04/18 10:23 Dose: 100 mg Lidocaine (Lidoderm Patch -) 2 patch TP DAILY [facility] Last Admin: 12/04/18 10:23 Dose: 2 patch Mirtazapine (Remeron -) 30 mg PO HS [facility] Last Admin: 12/03/18 21:16 Dose: 30 mg Miscellaneous (Lidoderm Patch Removal) 2 each MC DAILY@2200 [facility] Last Admin: 12/03/18 07:29 Dose: Not Given Oxycodone HCl (Roxicodone -) 5 mg PO TID@0800,1200,1700 PRN PRN Reason: PAIN LEVEL 6-10 Last Admin: 12/04/18 17:05 Dose: 5 mg Pantoprazole Sodium (Protonix -) 40 mg PO DAILY [facility] Last Admin: 12/04/18 10:23 Dose: 40 mg Tramadol HCl (Ultram -) 50 mg PO HS PRN PRN Reason: PAIN LEVEL 6-10 Last Admin: 12/03/18 21:16 Dose: 50 mg - Objective Vital Signs: Vital Signs Temperature 98 F 12/04/18 14:31 Pulse Rate 89 12/04/18 14:31 Respiratory Rate 20 12/04/18 14:31 Blood Pressure 118/65 12/04/18 14:31 O2 Sat by Pulse Oximetry (%) 98 12/04/18 09:00 Constitutional: Yes: No Distress Eyes: Yes: Conjunctiva Clear, EOM Intact HENT: Yes: Atraumatic, Normocephalic Neck: Yes: Supple, Trachea Midline Cardiovascular: Yes: Regular Rate and Rhythm, S1, S2 Respiratory: Yes: Regular, CTA Bilaterally Gastrointestinal: Yes: Normal Bowel Sounds, Soft, Abdomen, Obese. No: Hepatomegaly, Splenomegaly, Tenderness, Rebound Extremities: Yes: Other (limited ROM in th e left upper extremity). No: Calf Tenderness Edema: LLE: 1+ Neurological: Yes: Alert, Oriented Psychiatric: Yes: Alert, Oriented Labs: CBC, BMP 11/29/18 23:00 12/03/18 06:10 INR, PTT INR 1.35 (0.83-1.09) H 11/29/18 23:00 Problem List - Problems (1) Acute pain of left shoulder due to trauma Assessment/Plan: x ray of the left humerus ordered to rule out fracture or malunion of the fracture Code(s): M25.512 - PAIN IN LEFT SHOULDER; G89.11 - ACUTE PAIN DUE TO TRAUMA (2) Head trauma Assessment/Plan: negative CT scan of the brain no neurological changes continue Eliquis for now reassess the need for anticoagulation, consulting our Oncology service Code(s): S09.90XA - UNSPECIFIED INJURY OF HEAD, INITIAL ENCOUNTER (3) Gait disturbance Assessment/Plan: continue PT, the patient is weak and needs additional intensive OT and PT , she has limited use of her left upper extremity and this makes her more prone to falls, used to use a bed side rail at home in order to get in and out of her bed she is not a candidate to discharge to [facility] at this time Code(s): R26.9 - UNSPECIFIED ABNORMALITIES OF GAIT AND MOBILITY Assessment/Plan 78 yo female s/p fall and head trauma on anticoagulation, with PMH of multiple falls the most recent complicated by her left humerus fracture. The patient needs help with getting in and out of the bed, needs the help of a person with long distance ambulation can not ambulate for long distances without being dyspneic and has unsteady gait.She is a candidate for physical therapy and I recommend discharge to SNF As per the patient' request written discharge notice was given to her today.
[2018-12-04] MEDS: ACETAMINOPHEN 325 MG TABLET (FP) PO PRN (21:20)
[2018-12-04] MEDS: traMADol HCL 50 MG TABLET PO PRN (21:21)
[2018-12-04] MEDS: MIRTAZAPINE 15 MG TABLET (FP) PO SCH (21:21)
[2018-12-05] MEDS: LIDOCAINE PATCH REMOVAL MC SCH ×2 (08:26→10:41)
[2018-12-05] MEDS: clonazePAM 0.5 MG TABLET PO PRN (08:28)
--- NOTE | 2018-12-05 09:41 | PN ---
Progress Note, Physician Chief Complaint: Patient had her left shoulder X ray and there is no new fracture and no changes compared to previous X ray of November. History of Present Illness: 78 yo female admitted for head trauma post fall in the [place].She is complaining of left humerus pain. Since admission the patient had [address] scans of the head which were negative and a CT scan of the C spine which was also negative for fractures or hernias. The patient was scheduled for discharge to rehabilitation today but then she refused to go stating that she was never given a 24 hours written notice. The patient asked to be discharged to [facility] instead, afterwards she changed her mind again. - Current Medication List Current Medications: Active Medications Acetaminophen (Tylenol -) 650 mg PO Q6H PRN PRN Reason: PAIN LEVEL 4 - 6 Last Admin: 12/04/18 21:20 Dose: 650 mg Apixaban (Eliquis -) 5 mg PO BID [facility] Last Admin: 12/04/18 21:22 Dose: 5 mg Clonazepam (Klonopin -) 0.5 mg PO TID PRN PRN Reason: ANXIETY Last Admin: 12/05/18 08:28 Dose: 0.5 mg Docusate Sodium (Colace -) 100 mg PO DAILY [facility] Last Admin: 12/04/18 10:23 Dose: 100 mg Lidocaine (Lidoderm Patch -) 2 patch TP DAILY [facility] Last Admin: 12/04/18 10:23 Dose: 2 patch Mirtazapine (Remeron -) 30 mg PO HS [facility] Last Admin: 12/04/18 21:21 Dose: 30 mg Miscellaneous (Lidoderm Patch Removal) 2 each [facility] DAILY@2200 [facility] Last Admin: 12/05/18 08:26 Dose: Not Given Oxycodone HCl (Roxicodone -) 5 mg PO TID@0800,1200,1700 PRN PRN Reason: PAIN LEVEL 6-10 Last Admin: 12/04/18 17:05 Dose: 5 mg Pantoprazole Sodium (Protonix -) 40 mg PO DAILY [facility] Last Admin: 12/04/18 10:23 Dose: 40 mg Tramadol HCl (Ultram -) 50 mg PO HS PRN PRN Reason: PAIN LEVEL 6-10 Last Admin: 12/04/18 21:21 Dose: 50 mg - Objective Vital Signs: Vital Signs Temperature 98.1 F 12/05/18 06:30 Pulse Rate 89 12/05/18 06:30 Respiratory Rate 20 12/05/18 06:30 Blood Pressure 110/68 12/05/18 06:30 O2 Sat by Pulse Oximetry (%) 98 12/04/18 20:24 Labs: CBC, BMP 11/29/18 23:00 12/03/18 06:10 INR, PTT INR 1.35 (0.83-1.09) H 11/29/18 23:00 - ....Imaging X-ray: Other (left shoulder X ray old impacted fracture) Problem List - Problems (1) Acute pain of left shoulder due to trauma Assessment/Plan: x ray of the left humerus performed and there are no acute changes Code(s): M25.512 - PAIN IN LEFT SHOULDER; G89.11 - ACUTE PAIN DUE TO TRAUMA (2) Head trauma Assessment/Plan: negative CT scan of the brain no neurological changes continue Eliquis for now reassess the need for anticoagulation, consulting our Oncology service Code(s): S09.90XA - UNSPECIFIED INJURY OF HEAD, INITIAL ENCOUNTER (3) Gait disturbance Assessment/Plan: continue PT, the patient is weak and needs additional intensive OT and PT , she has limited use of her left upper extremity and this makes her more prone to falls, used to use a bed side rail at home in order to get in and out of her bed she is not a candidate to discharge to [facility] at this time note of discharge given to the patient, signed by myself and patient and attached to the chart by me Code(s): R26.9 - UNSPECIFIED ABNORMALITIES OF GAIT AND MOBILITY
[2018-12-05] MEDS: LIDOCAINE 5% TOPICAL PATCH TP SCH (10:19)
[2018-12-05] MEDS: PANTOPRAZOLE 40 MG TABLET (FP) PO SCH (10:19)
[2018-12-05] MEDS: APIXABAN 5 MG TABLET PO SCH (10:19)
[2018-12-05] MEDS: DOCUSATE SODIUM 100 MG CAPSULE (FP) PO SCH (10:19)
[2018-12-05] MEDS: oxyCODONE HCL 5 MG TABLET PO PRN (10:20)
--- NOTE | 2018-12-05 10:34 | CON.PSY ---
Psychiatry Consult Chief Complaint: 78 year 9old female admitted with Fracture Humerus. Patient seen for Psych eval for anxiety. On emeron and Klonapin. Symptoms: reports: Anxiety - Previous Psychiatric Treatment Outpatient: Less than 6 mos ago Inpatient: None - Previous Substance Abuse Treatment Outpatient: None Inpatient: None - Reason for Previous Treatment Reason for Previous Treatment: Major Depression, Anxiety or Panic Disorder - Current Medications Current Medications: Active Medications Acetaminophen (Tylenol -) 650 mg PO Q6H PRN PRN Reason: PAIN LEVEL 4 - 6 Last Admin: 12/04/18 21:20 Dose: 650 mg Apixaban (Eliquis -) 5 mg PO BID [facility] Last Admin: 12/05/18 10:19 Dose: 5 mg Clonazepam (Klonopin -) 0.5 mg PO TID PRN PRN Reason: ANXIETY Last Admin: 12/05/18 08:28 Dose: 0.5 mg Docusate Sodium (Colace -) 100 mg PO DAILY [facility] Last Admin: 12/05/18 10:19 Dose: 100 mg Lidocaine (Lidoderm Patch -) 2 patch TP DAILY [facility] Last Admin: 12/05/18 10:19 Dose: 2 patch Mirtazapine (Remeron -) 30 mg PO HS [facility] Last Admin: 12/04/18 21:21 Dose: 30 mg Miscellaneous (Lidoderm Patch Removal) 2 each MC DAILY@2200 [facility] Last Admin: 12/05/18 08:26 Dose: Not Given Oxycodone HCl (Roxicodone -) 5 mg PO TID@0800,1200,1700 PRN PRN Reason: PAIN LEVEL 6-10 Last Admin: 12/05/18 10:20 Dose: 5 mg Pantoprazole Sodium (Protonix -) 40 mg PO DAILY [facility] Last Admin: 12/05/18 10:19 Dose: 40 mg Tramadol HCl (Ultram -) 50 mg PO HS PRN PRN Reason: PAIN LEVEL 6-10 Last Admin: 12/04/18 21:21 Dose: 50 mg - Allergies Allergies: Allergies Allergy/AdvReac Type Severity Reaction Status Date / Time azithromycin Allergy Verified 11/29/18 20:13 latex Allergy Verified 11/29/18 20:13 pentazocine lactate Allergy abnormal Verified 11/29/18 20:13 [From Zoë] behavior - Current Living Status Usual Living Arrangement: Alf - Current Mental Status Evaluation Appearance: Well Groomed Attitude: Cooperative - Affect Affect: Constrictive Appropriateness: Appropriate to Content - Mood Mood: Anxious - Speech/Language Expressive: Coherent - Psychomotor Activity Psychomotor Activity: Slowed - Thought Process Thought Process: Intact - Thought Content Hallucinations: Absent Delusions: Absent - Self Perception Self Perception: No Impairment - Cognition Attention: Alert Orientation: Time Memory, Immediate Recall: Intact Memory, Short Term: 3/3 Memory, Remote with Promptin/3 - Concentration Serial Sevens Intact: No Simple Calculations Intact: Yes - Abstraction Proverb Interpretation: Intact Judgement: Intact - Insight Insight: Intact - Impulse Control Impulse Control: Good Control - Suicidal Ideation Suicidal Ideation: No - Homicidal Ideation Homicidal Ideation: No Assessment/Plan 1)pATIENT IS CLERAED TO GO TO [place]. 2) [facility] with [facility].
[2018-12-05 12:21] VITALS: BP 95/65; PULSE 92; TEMP 97.9
== END 2018-12-05 13:38 | DRG 914 ==
LOC: JER 18:18 → JERBED 23:59 → J8W 11-30 05:05 → OBSVTOIN 11-30 10:57 → J8W 12-01 18:11
PROVIDERS: ADMIT Internal Medicine; ATTEND Internal Medicine
DX: S09.8XXA Other specified injuries of head, initial encounter (principal); R26.9 Unspecified abnormalities of gait and mobility; S42.392G Other fracture of shaft of left humerus, subsequent encounter for fracture with delayed healing; I10 Essential (primary) hypertension; Z87.11 Personal history of peptic ulcer disease; F41.8 Other specified anxiety disorders; M54.5 Low back pain; I78.1 Nevus, non-neoplastic; M25.512 Pain in left shoulder; G89.11 Acute pain due to trauma; W18.39XA Other fall on same level, initial encounter; Z85.3 Personal history of malignant neoplasm of breast; Y92.89 Other specified places as the place of occurrence of the external cause; Z86.718 Personal history of other venous thrombosis and embolism; Z87.891 Personal history of nicotine dependence; Z86.711 Personal history of pulmonary embolism
CPT/HCPCS: 36415; 70450-TC; 71046-TC-FY; 72125-TC; 73060-TC-LT-FY; 80053; 80307; 81003; 81015; 82550; 84484; 85025; 85610; 87086; 93005; 93010; 97116-GP; 97161-GP; 99281-25; 99282-25; G0378